=== PATIENT | female | born 1955 | race Two or more races ===

== ENCOUNTER 2020-12-03 10:10 | Inpatient (IN) | payer OTHER ==
[~2020-12-03] VITALS: Ht 154.9 cm; Wt 96.2 kg
[2020-12-03] MEDS ORDERED: FORTAMET500 MG (10:31)
[2020-12-03] MEDS ORDERED: GLIMEPIRIDE4 M1 (10:31)
[2020-12-03] MEDS ORDERED: PROTONIX40 MG (10:32)
--- NOTE | 2020-12-03 10:36 | NUR ---
PACIENTE ALERTA Y ORIENTADA EN GÓMEZ STACIA ESFERAS QUIEN REFIERE VENIR A ER POR REFERIDO DE CATALINA. M BOGGS POR SANGRADO RECTAL Y VAGINAL. PT CONM HX DE CA VAGINAL.
--- NOTE | 2020-12-03 13:25 | NUR ---
PACIENTE EVALUADO POR MEDICO EN TURNO, SE VERIFICAN ORDENES MEDICAS Y SE ORIENTA SOBRE EL TRATAMIENTO A SEGUIR AL PACIENTE, REFIERE ENTENDERLAS. SE EJECUTAN LAS ORDENES SE CANALIZA Y SE COLOCA EL IVF'S, EKG, SE NOTIFICA CONSULTA CON DRA. BOGGS Y MUESRTA DE ORINA.
== END 2020-12-06 09:54 | disposition home or self-care (01) | DRG 330 ==
LOC: ER 10:10 → SURG 13:28 → SEC-K 13:28 → O/R 12-04 15:09 → SURG 12-04 15:32
PROVIDERS: ADMIT Surgery; ATTEND Surgery
PROC: 0D1B4Z4 Bypass Ileum to Cutaneous, Percutaneous Endoscopic Approach (ICD-10-PCS; principal; 2020-12-04 14:45)
DX: K62.5 Hemorrhage of anus and rectum (principal); C20 Malignant neoplasm of rectum; C54.1 Malignant neoplasm of endometrium; I11.9 Hypertensive heart disease without heart failure; E11.9 Type 2 diabetes mellitus without complications; G47.33 Obstructive sleep apnea (adult) (pediatric); Z20.822 Contact with and (suspected) exposure to COVID-19; D50.0 Iron deficiency anemia secondary to blood loss (chronic)

== ENCOUNTER 2022-07-06 06:17 | Day surgery (SDC) | payer OTHER ==
[~2022-07-06 06:17] MED LIST: FORTAMET500 MG; GLIMEPIRIDE4 M1; PROTONIX40 MG
== END 2022-07-06 11:40 | disposition home or self-care (01) ==
LOC: AMB-ENDOS 06:17
PROVIDERS: ATTEND Surgery
DX: K62.7 Radiation proctitis (principal); Z85.048 Personal history of other malignant neoplasm of rectum, rectosigmoid junction, and anus; Z20.822 Contact with and (suspected) exposure to COVID-19; E10.9 Type 1 diabetes mellitus without complications; Z92.21 Personal history of antineoplastic chemotherapy

== ENCOUNTER 2022-07-06 07:31 | Outpatient (CLI) | payer OTHER | END 2022-07-06 07:41 | disposition home or self-care (01) | LOC: LAB 07:31 | DX: Z20.822 Contact with and (suspected) exposure to COVID-19 (principal) ==

== ENCOUNTER 2023-06-07 11:15 | Inpatient (IN) | payer OTHER ==
[~2023-06-07] VITALS: Ht 152.4 cm; Wt 136.1 kg
[2023-06-08] MEDS ORDERED: SYNTHROID50 MCG PO (14:56)
[2023-06-08] MEDS ORDERED: GRALISE600 MG PO (14:56)
[2023-06-08] MEDS ORDERED: CILOSTAZOL50 MG PO (14:57)
[2023-06-08] MEDS ORDERED: [UNRECOGNIZED DRUG - OTHER] PO (14:57)
[2023-06-08] MEDS ORDERED: VITAMIN B122500 MCG PO (14:58)
[2023-06-08] MEDS ORDERED: VITAMIN D PO (14:58)
[2023-06-15] MEDS ORDERED: SYNJARDY 12.5-1 EACH (10:12)
[2023-06-15] MEDS ORDERED: VITAMIN D310 MC1 (10:12)
[2023-06-19] MEDS ORDERED: ACETAMINOPHEN500 M2 PO (11:31)
[2023-06-19] MEDS ORDERED: NEURONTIN300 MG PO (11:33)
[2023-06-19] MEDS ORDERED: LINEZOLID100 MG/5 M PO (11:37)
== END 2023-06-19 22:44 | disposition home or self-care (01) | DRG 330 ==
LOC: O/R 06-15 05:52 → SURG 06-15 10:45 → SURH 06-16 10:55
PROVIDERS: ADMIT Surgery; ATTEND Surgery
PROC: 0D1L4Z4 Bypass Transverse Colon to Cutaneous, Percutaneous Endoscopic Approach (ICD-10-PCS; 2023-06-15)
PROC: 0DNW4ZZ Release Peritoneum, Percutaneous Endoscopic Approach (ICD-10-PCS; 2023-06-15)
PROC: 0DBB4ZZ Excision of Ileum, Percutaneous Endoscopic Approach (ICD-10-PCS; 2023-06-15)
PROC: 8E0W4CZ Robotic Assisted Procedure of Trunk Region, Percutaneous Endoscopic Approach (ICD-10-PCS; 2023-06-15)
PROC: 0DTN4ZZ Resection of Sigmoid Colon, Percutaneous Endoscopic Approach (ICD-10-PCS; principal; 2023-06-15 10:45)
DX: Z43.2 Encounter for attention to ileostomy (principal); N82.3 Fistula of vagina to large intestine; K66.0 Peritoneal adhesions (postprocedural) (postinfection); K43.5 Parastomal hernia without obstruction or gangrene
CPT/HCPCS: 44188; 44207; 44180; 44227; S2900